=== PATIENT | male | born 1960 | race Two or more races ===

== ENCOUNTER 2018-07-03 18:19 | Emergency (ER) | payer OTHER ==
[~2018-07-03] VITALS: Ht 165.1 cm; Wt 70.3 kg
[~2018-07-03 18:19] MED LIST: AVALIDE 150-12.1 TA1 PO; DURICEF 500 MG CAPSULE PO; KETO10TA2 PO; MEDROLPACK PO; ORPH100T PO; PLAVIX75 MG; PLAVIX75 MG PO; SEPTRA DS TABLE1 TAB PO; TRAM1TAB98 PO; TRAMADOL HCL-AP1 TAB PO; ULTRAM50 MG PO; ZOCOR5 MG
== END 2018-07-03 21:33 | disposition home or self-care (01) ==
LOC: ER 18:19
DX: B35.6 Tinea cruris (principal)

== ENCOUNTER 2019-04-16 10:45 | Emergency (ER) | payer OTHER ==
[~2019-04-16] VITALS: Ht 162.6 cm; Wt 83.9 kg
== END 2019-04-16 12:48 | disposition home or self-care (01) ==
LOC: ER 10:45
DX: M54.5 Low back pain (principal)

== ENCOUNTER 2019-09-05 11:06 | Emergency (ER) | payer OTHER ==
[~2019-09-05] VITALS: Ht 162.6 cm; Wt 83.5 kg
== END 2019-09-05 12:32 | disposition home or self-care (01) ==
LOC: ER 11:06
DX: M54.89 Other dorsalgia (principal)

== ENCOUNTER 2019-11-02 17:07 | Emergency (ER) | payer OTHER ==
[~2019-11-02] VITALS: Ht 162.6 cm; Wt 84.4 kg
[2019-11-02] MEDS ORDERED: AVALIDE 300-121 EACH PO (17:27)
[2019-11-02] MEDS ORDERED: DIALYVITE 800-1 EACH PO (17:28)
[2019-11-02] MEDS ORDERED: ZETIA10 MG PO (17:28)
== END 2019-11-02 18:44 | disposition home or self-care (01) ==
LOC: ER 17:07
DX: I16.0 Hypertensive urgency (principal); I10 Essential (primary) hypertension

== ENCOUNTER 2019-11-10 13:35 | Emergency (ER) | payer OTHER ==
[~2019-11-10] VITALS: Ht 162.6 cm; Wt 84.4 kg
[~2019-11-10 13:35] MED LIST changes: +AVALIDE 300-121 EACH PO; +DIALYVITE 800-1 EACH PO; +ZETIA10 MG PO
== END 2019-11-10 15:29 | disposition home or self-care (01) ==
LOC: ER 13:35
DX: I10 Essential (primary) hypertension (principal)

== ENCOUNTER 2020-09-10 09:16 | Emergency (ER) | payer OTHER ==
[~2020-09-10] VITALS: Ht 162.6 cm; Wt 86.2 kg
[2020-09-10] MEDS ORDERED: NORFLEX100MG PO (11:42)
[2020-09-10] MEDS ORDERED: MEDROLPACK PO (11:42)
== END 2020-09-10 11:52 | disposition home or self-care (01) ==
LOC: ER 09:16
DX: M25.511 Pain in right shoulder (principal); M54.2 Cervicalgia

== ENCOUNTER 2020-10-11 09:32 | Emergency (ER) | payer OTHER ==
[~2020-10-11] VITALS: Ht 162.6 cm; Wt 84.8 kg
[~2020-10-11 09:32] MED LIST changes: +NORFLEX100MG PO
[2020-10-11] MEDS ORDERED: SKELAXIN800 MG PO (11:01)
[2020-10-11] MEDS ORDERED: MEDROLPACK PO (11:01)
[2020-10-11] MEDS ORDERED: PERCOCET 5-3251 EACH PO (11:08)
== END 2020-10-11 11:16 ==
LOC: ER 09:32
DX: S43.491A Other sprain of right shoulder joint, initial encounter (principal); M62.838 Other muscle spasm; W18.09XA Striking against other object with subsequent fall, initial encounter; Y93.89 Activity, other specified; Y92.89 Other specified places as the place of occurrence of the external cause; Y99.8 Other external cause status

== ENCOUNTER 2021-01-09 13:09 | Emergency (ER) | payer OTHER ==
[~2021-01-09] VITALS: Ht 162.6 cm; Wt 85.7 kg
[~2021-01-09 13:09] MED LIST changes: +PERCOCET 5-3251 EACH PO; +SKELAXIN800 MG PO
[2021-01-09] MEDS ORDERED: LIPITOR40 MG (13:18)
[2021-01-09] MEDS ORDERED: AMLODIPINE BESYL5 MG (13:19)
== END 2021-01-09 16:34 | disposition home or self-care (01) ==
LOC: ER 13:09
DX: R30.0 Dysuria (principal); K57.92 Diverticulitis of intestine, part unspecified, without perforation or abscess without bleeding

== ENCOUNTER 2021-01-13 14:08 | Emergency (ER) | payer OTHER ==
[~2021-01-13] VITALS: Ht 162.6 cm; Wt 85.7 kg
[~2021-01-13 14:08] MED LIST changes: +AMLODIPINE BESYL5 MG; +LIPITOR40 MG
[2021-01-13] MEDS ORDERED: PROTONIX20 MG PO (20:57)
[2021-01-13] MEDS ORDERED: PEPCID AC20 MG PO (20:57)
[2021-01-13] MEDS ORDERED: INTESTINEX680 M2 PO (20:57)
[2021-01-13] MEDS ORDERED: CARAFATE1 GM PO (20:57)
== END 2021-01-13 21:42 | disposition home or self-care (01) ==
LOC: ER 14:08
DX: K92.1 Melena (principal); R10.84 Generalized abdominal pain

== ENCOUNTER 2021-11-14 09:50 | Emergency (ER) | payer OTHER ==
[~2021-11-14] VITALS: Ht 162.6 cm; Wt 83.5 kg
[~2021-11-14 09:50] MED LIST changes: +CARAFATE1 GM PO; +INTESTINEX680 M2 PO; +PEPCID AC20 MG PO; +PROTONIX20 MG PO
[2021-11-14] MEDS ORDERED: CYCLOBENZAPRINE10 MG PO (10:39)
== END 2021-11-14 10:51 | disposition home or self-care (01) ==
LOC: ER 09:50
DX: M54.50 Low back pain, unspecified (principal); I10 Essential (primary) hypertension

== ENCOUNTER 2022-03-30 09:24 | Emergency (ER) | payer OTHER ==
[~2022-03-30] VITALS: Ht 162.6 cm; Wt 84.4 kg
[~2022-03-30 09:24] MED LIST changes: +CYCLOBENZAPRINE10 MG PO
[2022-03-30] MEDS ORDERED: PERCOCET 5-3251 EACH PO (13:12)
== END 2022-03-30 14:05 | disposition home or self-care (01) ==
LOC: ER 09:24
DX: M54.59 Other low back pain (principal); Z88.6 Allergy status to analgesic agent; E05.90 Thyrotoxicosis, unspecified without thyrotoxic crisis or storm

== ENCOUNTER 2022-03-31 11:38 | Emergency (ER) | payer OTHER ==
[~2022-03-31] VITALS: Ht 162.6 cm; Wt 86.2 kg
== END 2022-03-31 13:56 | disposition home or self-care (01) ==
LOC: ER 11:38
DX: K80.20 Calculus of gallbladder without cholecystitis without obstruction (principal); Z88.6 Allergy status to analgesic agent

== ENCOUNTER 2022-08-20 16:47 | Emergency (ER) | payer OTHER ==
[~2022-08-20] VITALS: Ht 162.6 cm; Wt 85.7 kg
== END 2022-08-20 19:58 | disposition home or self-care (01) ==
LOC: ER 16:47
DX: I10 Essential (primary) hypertension (principal)

== ENCOUNTER 2022-12-26 19:11 | Emergency (ER) | payer OTHER ==
[~2022-12-26] VITALS: Ht 162.6 cm; Wt 83.0 kg
== END 2022-12-26 21:40 | disposition home or self-care (01) ==
LOC: ER 19:11
DX: M79.673 Pain in unspecified foot (principal); Z88.6 Allergy status to analgesic agent; W11.XXXA Fall on and from ladder, initial encounter; Y93.89 Activity, other specified; Y92.018 Other place in single-family (private) house as the place of occurrence of the external cause

== ENCOUNTER 2023-05-03 16:38 | Emergency (ER) | payer OTHER ==
[~2023-05-03] VITALS: Ht 162.6 cm; Wt 83.0 kg
[2023-05-03] MEDS ORDERED: NORFLEX100MG PO (18:14)
[2023-05-03] MEDS ORDERED: DOLOGEN CAPLET1 EACH PO (18:14)
== END 2023-05-03 18:50 | disposition home or self-care (01) ==
LOC: ER 16:38
DX: M54.59 Other low back pain (principal); Z88.4 Allergy status to anesthetic agent

== ENCOUNTER 2024-05-16 10:36 | Emergency (ER) | payer OTHER ==
[~2024-05-16] VITALS: Ht 162.6 cm; Wt 81.6 kg
[~2024-05-16 10:36] MED LIST changes: +DOLOGEN CAPLET1 EACH PO
[2024-05-16] MEDS ORDERED: ORPHENADRINE CITRATE 100 MG TABLET PO STA (11:46)
[2024-05-16] MEDS ORDERED: DEXAMETHASONE SODIUM PHOSPHATE 4 MG/ML VIAL IV STA (11:46)
[2024-05-16] MEDS ORDERED: DEXAMETHASONE SODIUM PHOSPHATE 4 MG/ML VIAL ONE (11:57)
== END 2024-05-16 15:42 | disposition home or self-care (01) ==
LOC: ER 10:38
DX: M54.50 Low back pain, unspecified (principal); M51.36 Other intervertebral disc degeneration, lumbar region; Z88.6 Allergy status to analgesic agent; I10 Essential (primary) hypertension

== ENCOUNTER 2024-11-05 09:25 | Emergency (ER) | payer OTHER ==
[~2024-11-05] VITALS: Ht 162.6 cm; Wt 81.6 kg
[2024-11-05] MEDS ORDERED: DEXAMETHASONE SODIUM PHOSPHATE 4 MG/ML VIAL IM STA (10:31)
[2024-11-05] MEDS ORDERED: ORPHENADRINE CITRATE 30 MG/ML AMPUL IM STA (10:31)
[2024-11-05] MEDS ORDERED: ORPHENADRINE CITRATE 30 MG/ML AMPUL ONE (10:40)
[2024-11-05] MEDS ORDERED: DEXAMETHASONE SODIUM PHOSPHATE 4 MG/ML VIAL ONE (10:40)
== END 2024-11-05 13:09 | disposition home or self-care (01) ==
LOC: ER 09:27
DX: M54.50 Low back pain, unspecified (principal); I10 Essential (primary) hypertension; Z88.6 Allergy status to analgesic agent

== ENCOUNTER 2024-12-08 13:04 | Emergency (ER) | payer OTHER ==
[~2024-12-08] VITALS: Ht 162.6 cm; Wt 127.5 kg
[2024-12-08] MEDS ORDERED: DEXAMETHASONE SODIUM PHOSPHATE 4 MG/ML VIAL IM STA (15:07)
[2024-12-08 16:39] LABS: HEMATOCRIT 49.1 % (39.0-48.0); HEMOGLOBIN 16.8 g/dL (13-16.00); MEAN CELL VOLUME 91.2 fL (80.0-100.00); MEAN CORPUSCULAR HEMOGLOBIN 31.1 pg (27.00-32.0); MEAN CORPUSCULAR HGB CONC 34.1 g/dl (32.0-36.0); PLATELET COUNT 215 K/uL (150-450); RED BLOOD COUNT 5.38 M/uL (4.00-6.00); RED CELL DISTRIBUTION WIDTH 16.5 % (11.5-14.5)
[2024-12-08 16:46] LABS: ERYTHROCYTE SEDIMENTATION RATE 16 mm/hr
== END 2024-12-08 20:15 | disposition home or self-care (01) ==
LOC: ER 13:07
PROVIDERS: General Practice
DX: M79.641 Pain in right hand (principal); I10 Essential (primary) hypertension; Z88.6 Allergy status to analgesic agent; M85.841 Other specified disorders of bone density and structure, right hand

== ENCOUNTER 2025-01-21 00:30 | Emergency (ER) | payer OTHER ==
[~2025-01-21] VITALS: Ht 162.6 cm; Wt 83.0 kg
[2025-01-21 00:35] VITALS: BP 172/89; O2SAT 99
== END 2025-01-21 04:17 | disposition home or self-care (01) ==
LOC: ER 00:31
DX: K30 Functional dyspepsia (principal); Z88.6 Allergy status to analgesic agent

== ENCOUNTER 2025-08-08 09:43 | Emergency (ER) | payer OTHER ==
[~2025-08-08] VITALS: Ht 162.6 cm; Wt 82.6 kg
[2025-08-08 10:35] VITALS: BP 163/87; O2SAT 96
[2025-08-08 11:39] LABS: BASO % 0.9 % (0.1-1.2); EOS # 0.60 (0.04-0.54); EOS % 5.9 % (0.7-7.0); LYMPH # 1.25 (1.18-3.74); LYMPH % 12.2 % (19.3-53.1); MEAN PLATELET VOLUME 9.20 fl (9.4-12.4); MONO # 1.15 (0.24-0.82); MONO % 11.3 % (4.7-12.5); NEUT # 7.10 (1.56-6.13); NEUT % 69.5 % (34.0-71.1); RED CELL DISTRIBUTION WIDTH 15.3 % (11.6-14.4)
[2025-08-08 11:49] LABS: ERYTHROCYTE SEDIMENTATION RATE 25 mm/hr (0-20)
[2025-08-08 12:56] LABS: ALT/SGPT 37.0 U/L (12-78); AST/SGOT 27.0 U/L (15-37); BILIRUBIN TOTAL 0.68 mg/dL (0.3-1.2); BUN CREA RATIO 18.0 (7.0-25.0); CREATININE SERUM 0.88 mg/dL (0.70-1.30); GFR 87.46; GLOBULINA 3.0 G/DL (2.4-3.5); GLUCOSE FASTING 80.0 mg/dL (65-100); OSMOLALITY SERUM 283.0 MOSM/KG (275-295)
[2025-08-08] MEDS ORDERED: CEFTRIAXONE SODIUM 2,000 MG VIAL ONE (15:43)
[2025-08-08] MEDS ORDERED: CEFTRIAXONE SODIUM 2,000 MG VIAL IV ONE (15:45)
[2025-08-08] MEDS ORDERED: CEPHALEXIN500 MG PO (17:52)
== END 2025-08-08 18:02 | disposition home or self-care (01) ==
LOC: ER 09:43
PROVIDERS: Preventive Medicine Public Health & General Preventive Medicine
DX: L03.114 Cellulitis of left upper limb (principal); Z88.6 Allergy status to analgesic agent; I10 Essential (primary) hypertension

== ENCOUNTER → 2025-09-08 | Emergency (ER) | payer OTHER ==
[~2025-09-08] VITALS: Ht 162.6 cm; Wt 84.8 kg
[~2025-09-08] MED LIST changes: +8HR ARTHRITIS650 M1 PO; +ACETAMINOPHEN 500 MG GEL..CAP PO ONE; +CEPHALEXIN500 MG PO; +DEXAMETHASONE SODIUM PHOSPHATE 4 MG/ML VIAL IM ONE; +DEXAMETHASONE SODIUM PHOSPHATE 4 MG/ML VIAL ONE; +ORPHENADRINE CITRATE 30 MG/ML AMPUL IM ONE; +ORPHENADRINE CITRATE 30 MG/ML AMPUL ONE
== END | disposition home or self-care (01) ==
LOC: ER 14:22
DX: M62.838 Other muscle spasm (principal); Z88.6 Allergy status to analgesic agent; I10 Essential (primary) hypertension

== ENCOUNTER 2025-09-17 06:15 | Emergency (ER) | payer OTHER ==
[~2025-09-17] VITALS: Ht 162.6 cm; Wt 84.8 kg
[~2025-09-17 06:15] MED LIST changes: -ACETAMINOPHEN 500 MG GEL..CAP PO ONE; -DEXAMETHASONE SODIUM PHOSPHATE 4 MG/ML VIAL IM ONE; -DEXAMETHASONE SODIUM PHOSPHATE 4 MG/ML VIAL ONE; -ORPHENADRINE CITRATE 30 MG/ML AMPUL IM ONE; -ORPHENADRINE CITRATE 30 MG/ML AMPUL ONE
[2025-09-17] MEDS ORDERED: MORPHINE SULFATE 4 MG/ML CARTRIDGE IV ONE (08:15)
[2025-09-17] MEDS ORDERED: DEXAMETHASONE SODIUM PHOSPHATE 4 MG/ML VIAL IV ONE (08:15)
[2025-09-17] MEDS ORDERED: DEXAMETHASONE SODIUM PHOSPHATE 4 MG/ML VIAL ONE (08:44)
== END 2025-09-17 10:12 | disposition home or self-care (01) ==
LOC: ER 06:16
DX: M54.16 Radiculopathy, lumbar region (principal); M54.59 Other low back pain; I10 Essential (primary) hypertension; Z88.6 Allergy status to analgesic agent